=== PATIENT | male | born 1955 | race Caucasian/White ===

== ENCOUNTER → 2016-09-26 | Outpatient (CLI) | payer OTHER | LOC: OPSV 07:17 → CT 10:30 | DX: E86.0 Dehydration (principal); R59.1 Generalized enlarged lymph nodes; D47.2 Monoclonal gammopathy | CPT/HCPCS: 71260; 74160; 96360; 96361; J7030; J7050; Q9965 ==

== ENCOUNTER 2016-10-31 19:06 | Emergency (ER) | payer OTHER ==
[2016-10-31 19:48] LABS: HEMOGLOBIN 11.6 gm/dl (14.0-17.5); RED BLOOD COUNT 3.38 M/UL (4.20-5.50)
[2016-10-31 20:19] LABS: BUN/CREATININE RATIO 19 (0-10)
[2016-10-31 21:02] LABS: BUN/CREATININE RATIO 17 (0-10)
== END 2016-11-01 01:17 | disposition home or self-care (01) ==
LOC: ER1 19:06
PROVIDERS: Emergency Medicine; Physician Assistant
DX: R07.2 Precordial pain (principal); R00.2 Palpitations; C85.90 Non-Hodgkin lymphoma, unspecified, unspecified site; Z79.899 Other long term (current) drug therapy
CPT/HCPCS: 36415; 71010; 71275; 80053; 82550; 82553; 83735; 83874; 84439; 84443; 84484; 85025; 85379; 93005; 96374; 99285; C9113; J7050; Q9963

== ENCOUNTER → 2020-12-20 | Outpatient (CLI) | payer MEDICARE, OTHER | LOC: HEART CORB 08:30 | DX: I08.3 Combined rheumatic disorders of mitral, aortic and tricuspid valves (principal); I48.0 Paroxysmal atrial fibrillation | CPT/HCPCS: 93306 ==